=== PATIENT | female | born 1970 | race Caucasian/White ===

== ENCOUNTER 2018-05-29 18:21 | Emergency (ER) | payer OTHER ==
[~2018-05-29] VITALS: Ht 157.5 cm; Wt 65.8 kg
[~2018-05-29 18:21] MED LIST: MULT PO
[2018-05-29 18:39] VITALS: BP_SYST 119
[2018-05-29] MEDS ORDERED: chlorproMAZINE HCL 50 MG/ 2 ML AMP IV ONE (19:30)
[2018-05-29] MEDS ORDERED: DIPHENHYDRAMINE INJ 50 MG/ML VIAL IVP ONE ×2 (19:30→20:15)
[2018-05-29] MEDS ORDERED: NACL 0.9% 1,000 ML IV ONE (19:30)
[2018-05-29 19:54] LABS: EOSINOPHILS # (AUTO) 0.1 K/uL (0.0-0.4); EOSINOPHILS % (AUTO) 0.8 % (0.0-4.0); HEMOGLOBIN 13.1 g/dL (12.0-16.0); LYMPHOCYTES # (AUTO) 1.8 K/uL (1.0-5.5)
[2018-05-29 19:57] LABS: CALCIUM 8.6 mg/dL (8.4-11.0); CREATININE 0.75 mg/dL (0.55-1.30); POTASSIUM 3.6 mmol/L (3.5-5.1)
[2018-05-29 19:58] LABS: BASOPHILS % (AUTO) 0.6 % (0.0-2.0); HEMATOCRIT 38.7 % (36-48); LYMPHOCYTES % (AUTO) 22.9 % (20.5-51.5); MEAN CORPUSCULAR HEMOGLOBIN 33 pg (27-31); MEAN CORPUSCULAR HGB CONC 34 % (32-36); MEAN CORPUSCULAR VOLUME 96 fL (79.0-98.0); MONOCYTES # (AUTO) 0.4 K/uL (0.0-1.0); MONOCYTES % (AUTO) 4.6 % (1.7-9.3); NEUTROPHILS # (AUTO) 5.7 K/uL (1.8-7.7); NEUTROPHILS % (AUTO) 71.1 % (40.0-70.0); PLATELET COUNT (AUTO) 384 K/uL (130-430); RED BLOOD CELL COUNT(AUTO) 4.03 MIL/uL (4.2-6.2); RED CELL DISTRIBUTION WIDTH 12.5 % (9.0-15.0)
[2018-05-29 20:00] VITALS: BP_SYST 119
[2018-05-29 20:04] LABS: BILIRUBIN,URINE NEGATIVE (NEGATIVE); BLOOD, URINE NEGATIVE (NEGATIVE); CLARITY/URINE CLEAR (CLEAR); COLOR,URINE YELLOW (YELLOW); GLUCOSE,URINE NEGATIVE (NEGATIVE); KETONES,URINE NEGATIVE (NEGATIVE); LEUKOCYTE ESTERASE ,URINE NEGATIVE (NEGATIVE); NITRITE, URINE NEGATIVE (NEGATIVE); PROTEIN URINE NEGATIVE (NEGATIVE); UROBILINOGEN,URINE 0.2 (0.2-1.0)
[2018-05-29 20:20] LABS: BARBITURATE, URINE NEGATIVE (NEG <=200); BENZODIAZEPINE, URINE NEGATIVE (NEG <=150); CANNABINOID, URINE NEGATIVE (NEG <=50); COCAINE, URINE NEGATIVE (NEG <=150); METHAMPHETAMINES SCREEN,URINE NEGATIVE (NEG <=500); OPIATE, URINE NEGATIVE (NEG <=100); PHENCYCLIDINE SCREEN,URINE NEGATIVE (NEG <=25); UR TRICYCLIC ANTIDEPRESSANTS NEGATIVE (NEG <=300); URINE AMPHETAMINE NEGATIVE (NEG <=500); URINE METHADONE NEGATIVE (NEG <=200); URINE OXYCODONE SCREEN NEGATIVE (NEG <=100); URINE PROPOXYPHENE SCREEN NEGATIVE (NEG <=300)
== END 2018-05-29 19:45 | disposition home or self-care (01) ==
LOC: SED 18:21
DX: R51 Headache (principal); R42 Dizziness and giddiness; R11.2 Nausea with vomiting, unspecified
CPT/HCPCS: 36415; 80048; 80307; 81003; 81025; 85025; 93005; 96361; 96374; 96375; 99285; J1200; J3230; J7030

== ENCOUNTER 2018-11-30 22:15 | Emergency (ER) | payer OTHER ==
[~2018-11-30] VITALS: Ht 157.5 cm; Wt 65.8 kg
[2018-11-30] MEDS ORDERED: FLUORESCEIN SODIUM 1 MG OPHTHALMIC STRIP OP ONE (22:16)
[2018-11-30] MEDS ORDERED: TETRACAINE HCL 0.5% OPHTHALMIC DROPS 15 ML OP ONE (22:16)
[2018-11-30] MEDS ORDERED: BALANCED SALT IRRIG SOLN 15 ML IO ONE (22:16)
[2018-11-30 22:25] VITALS: BP_SYST 117
--- NOTE | 2018-11-30 22:40 | NUR ---
Patient to ER bed 7 for evaluation. Report given to
--- NOTE | 2018-11-30 22:50 | NUR ---
Pt came to the ED for foreign body sensation to the R eye earlier this evening. Reported she was taking a shower and then she felt something get into her eye. Pt said she rinsed it out a few times at home with little relief. Denies fever, chills, n/v. Denies chest pain or SOB. No change in vision. No trauma. No pain. No other complaints/injuries noted. Will cont. to monitor.
--- NOTE | 2018-11-30 23:00 | NUR ---
ER at bedside examining patient.
--- NOTE | 2018-11-30 23:10 | NUR ---
Eye kit at bedside, Dr. Trivedi re-examining pt. Will cont. to monitor.
[2018-11-30 23:27] VITALS: BP_SYST 117
--- NOTE | 2018-11-30 23:27 | NUR ---
Patient given written and verbal discharge instructions and verbalizes understanding. ER MD Dr. Trivedi discussed with patient the results and treatment provided. Patient in stable condition. ID arm band removed. Patient educated on pain management and to follow up with PMD within 2-3 days. Pain Scale 0/10. Opportunity for questions provided and answered. Medication side effect fact sheet provided.
== END 2018-11-30 23:27 | disposition home or self-care (01) ==
LOC: SED 22:15
DX: H57.11 Ocular pain, right eye (principal); Z88.8 Allergy status to other drugs, medicaments and biological substances
CPT/HCPCS: 99282; 99283

== ENCOUNTER 2019-06-22 07:07 | Emergency (ER) | payer OTHER ==
[~2019-06-22] VITALS: Ht 157.5 cm; Wt 63.5 kg
[2019-06-22 07:10] VITALS: BP_SYST 105
--- NOTE | 2019-06-22 07:20 | NUR ---
Patient to ER bed 04 to gown for evaluation. Side rails up.
--- NOTE | 2019-06-22 07:25 | NUR ---
Patient presented to ER with right foot laceration. Patient A&Ox4, bleeding controlled, ambulatory to ER, pain 11/19. Patient states she was walking down stairs this morning, she caugt the back of heal on edge of step and caused right heal 4-5 cm laceration.
--- NOTE | 2019-06-22 07:40 | NUR ---
[facility] at bedside examining patient.
--- NOTE | 2019-06-22 07:45 | NUR ---
Radiology at bedside for portable x-ray
[2019-06-22] MEDS ORDERED: IBUPROFEN 800 MG TABLET PO ONE (08:00)
[2019-06-22] MEDS ORDERED: LIDOCAINE/EPI 1% 1:100000 20 ML VIAL INJ ONE (08:00)
[2019-06-22] MEDS ORDERED: CEPHALEXIN 500 MG CAPSULE PO ONE (08:30)
[2019-06-22] MEDS ORDERED: DIPH-TET-PERTUS Vaccine 0.5 ML VIAL (ADACEL) I.M. ONE (08:30)
[2019-06-22] MEDS ORDERED: BACITRACIN 1 GM OINT TP ONE ×2 (08:45→08:57)
--- NOTE | 2019-06-22 09:00 | NUR ---
Patient has a 4.5 cm cm laceration to right anterior anckle . Dr. Scales applied sutures using sterile technique. Edges well approximated. Site cleansed with iodine. Dressing of non-adhereing & kerlex applied to site. No bleeding noted. Pt tolerated well.
[2019-06-22 09:25] VITALS: BP_SYST 105
--- NOTE | 2019-06-22 09:25 | NUR ---
Patient given written and verbal discharge instructions and verbalizes understanding. ER MD discussed with patient the results and treatment provided. Patient in stable condition. ID arm band removed. Rx of given. Patient educated on pain management and to follow up with PMD. Pain Scale 2/10 Ibuprofen & Keflex. Opportunity for questions provided and answered. Medication side effect fact sheet provided.
== END 2019-06-22 09:25 | disposition home or self-care (01) ==
LOC: SED 07:07
DX: S91.311A Laceration without foreign body, right foot, initial encounter (principal); Z88.8 Allergy status to other drugs, medicaments and biological substances; W01.0XXA Fall on same level from slipping, tripping and stumbling without subsequent striking against object, initial encounter; Y93.89 Activity, other specified; Y92.89 Other specified places as the place of occurrence of the external cause; Y99.8 Other external cause status
CPT/HCPCS: 90715; 99283